=== PATIENT | female | born 1950 | race Caucasian/White ===

== ENCOUNTER 2024-02-29 12:55 | Outpatient (RCR) | payer MEDICARE, SELFPAY ==
--- NOTE | 2024-03-04 11:05 | MHC.SP.ADU ---
Referring provider: Jessica Carrasco MD Reason for Referral: Hoarseness Type of Treatment: 29867 Behavioral and Qualitative Analysis of Voice and Resonance Date of Plan of Treatment: 02/29/24 Onset of Symptoms/Illness: 06/30/23 Date Treatment Started: 02/29/24 Medical Diagnosis: Hoarseness, Polyp of Vocal Chord and Larynx. 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 Jessica at this evaluation produced pictures and an active recording of her larynx taken at her last visit to the ENT for follow up and repeat laryngoscopy. Her polyp was clearly visible on her left vocal fold, and on vowel production it constrained movement and vibration of the left vocal chord. Jessica notes that her hoarseness from the condition is mild, mostly noticed by her versus others. However, she formerly sang in a [employer] choir, and notes she is unable to sing, particularly in her typical range which is soprano. Apart from occasional singing, Jessica reports no specific activity or behavior that would indicate unusual or excessive vocal use. 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 Her twin foster daughters who are on the autism spectrum and have diagnosed mental health issues now live in a penitentiary. She described talking a lot when she was actively caring for her children, however not chronically yelling or speaking with loud volume. With regard to further vocal health indicators, Jessica has no substantive history of smoking, alcohol use, allergies or asthma. She reports that she has not been diagnosed with GERD, but notes she has occasional heart burn. She noted that she does not necessarily keep track of how much water or clear fluids she is drinking during the day and suspects at times she may be mildly dehydrated. 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 She noted that her vocal chord polyp and thyroid nodules are being treated by different specialists with different diagnoses and treatments', and therefore it is unclear if there is any correlation between the two. She noted that her thyroid levels are normal despite the presence of nodules. Jessica queried if voice therapy could cure her polyp, and she was given an honest response that it may improve her vocal quality and use, but it is indeterminant if it will cause her polyp to recede, particularly given her generally good vocal health (with vocal health issues not indicated as precursory). Jessica is , reporting that her is a retired irrigation engineer, and the family live in a private residence in [place]. Jessica continues to be fully involved with her daughter's care, receiving some assistance during the day as respite. 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 Medication List: Please refer to medical chart. Recent Hospitalizations: No Respiratory Needs: Room Air Patient Orientation: Alert & Oriented x 4 Social History: Employment Status: Self-Employed Highest level of education obtained: Completed High School/GED Current Living Situation: Lives in a private residence in [place] with and disabled adult daughter. Past Speech Language Therapy: Jessica reports she had speech services when she was in third grade. Other Therapies Seen in Current Calendar Year: None Reported Speech, Language, Cognition difficulties: Voice Comments: Mild dysphonia/hoarseness Quality of Life: Excellent Patient Stated Goal of Speech-Language Therapy: Provide a program of vocal therapy to improve vocal function. Assessment Informal Voice Assessment: Voice Loudness: Mildly Soft/Quiet Voice Nasal Resonance: Normal Voice Oral Resonance: Normal Voice Phonatory-based Quality: Hoarse Voice Pitch: Normal Voice Other Observations: Throat Clearing Clinical Impression: Impaired Clinicial Observations: Jessica presented as highly cooperative, insightful and very pleasant with strong communication skills. Jessica was administered the Consensus Auditory Perceptual Evaluation of Voice (CAPE-V). On this evaluation, Aletha demonstrated a balanced ratio of voiceless v. voiced phonation (S/Z Ration) of .95. When producing sustained continuous phonation of speech sounds, mild wavering, or unsteady tone was noted.. When producing normal speech of targeted speech sounds in phonemically balanced sentences, a mildly hoarse/breathy vocal quality with mildly reduced vocal volume was noted. When asked to vary volume, Jessica demonstrated normal ability. On pitch variation, Jessica demonstrated reduced range, with wavering/pitch breaks noted both on higher notes and lower notes. Enedina appeared to be able to produce adequate breath support for speech and was well familiar with abdominal/diaphragmatic breathing from her singing experience. Excessive vocal strain was not noted on this evaluation. Impressions and Recommendations Summary: On voice evaluation today, Jessica presents with mild perceptual vocal differences that include a mildly hoarse/breathy vocal quality, and mild wavering/phonation breaks when sustaining a sound or a musical note. 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 She notably has minimal reported vocal health issues as possible antecedents to her condition, with adequate hydration the only indicator. Given referral/recommendation by her ENT for vocal therapy and Jessica's expressed interest in treatment, it is recommended Jessica return for a period of intervention, to provide therapeutic techniques and education to improve her vocal quality. Impact on Daily Function/Activity Limitations: Daily Activities: Mild Interpersonal Interactions: Mild Education: Mild Employment: Mild Community: Mild Prognosis for Improvement: Good Recommendation for Speech Therapy: Outpatient Speech Therapy Frequency/Duration: One, forty five minute therapy session, weekly. Date Range for Service Requested: 6-8 Weeks Time to Reassess: PRN Longterm Goals: Jessica will sustain clear vocal tone, volume and appropriate breath support for voicing in conversational speech in 4 out of 5 contexts. Short Term Goals: Goal # : 1.1 Jessica will use relaxation strategies, including circular breathing, constructive rest, visualization techniques to reduce muscle tension demonstrating 80% independence on instructed techniques, Goal Status: Goal# : 2.1 Given instruction in vocal flow (easy breath support for phonation), Jessica will sustain phonation of specific vowel phonemes with sustained tone as measured by a sound or pitch meter for 3 seconds 2.2 Using vocal flow technique, Jessica will produce easy onset of words with 80% accuracy 2.3 Using vocal flow technique, Jessica will produce easy onset at the phrase level with 80% accuracy. Goal Status: Goal # : 3.1: Using directed resonance and vocal flow technique, Jessica will vary vocal pitch with sustained tone as measured by a pitch meter, evidencing at least three sustained notes. Goal Status: Goal # : 4.1: Jessica will sustain clear vocal tone, volume and appropriate breath support for voicing in conversational speech in 4 out of 5 contexts. Goal Status: Patient Education: Completed: Yes Patient/Caregiver Education: Described Results of Evaluation Patient expressed understanding of evaluation Patient agrees with goals and treatment plan Comments/Barriers to Learning: Exhibit Carpenter Clinican/Clinical Fellow: No Supervisory Statement: N/A Speech Language Pathologist: Sheyla Marcial M.A., [facility]-UNDERCOVER OPERATOR
== END 2024-03-09 13:46 | disposition still patient (30) ==
LOC: HO.SH 12:55
PROVIDERS: PCP Internal Medicine; Visit Provider Otolaryngology
DX: R49.0 Dysphonia (principal)
CPT/HCPCS: 92524

== ENCOUNTER 2024-04-24 13:00 | Outpatient (RCR) | payer MEDICARE, SELFPAY ==
--- NOTE | 2024-05-15 11:07 | MHC.SL.SOA ---
Referring Provider: Jessica Carrasco MD Reason for Referral: Hoarseness Date of Plan of Treatment:02/29/24 Onset of Symptoms/Illness:06/30/23 Date Treatment Started:02/29/24 Medical Diagnosis: Primary Speech Language Diagnosis:R49.0 Dysphonia Secondary Speech Language Diagnosis: Number of Authorized Visits Remaining: Authorization End Date: Reason for Visit:66778 Individual Treatment Other: Subjective:This is an administrative discharge note, as yesterday, Jessica contacted this clinic to inform that she was electively stopping therapy due to the costs in was incurring. To date, she has completed five therapy sessions, with an initial recommendation for 6-8 depending on progress. Jessica has made excellent progress in the five session, and had recently reported that her vocal node had receded, though not fully. At all sessions, Jessica fully participated and was receptive to learning strategies to improve her voice and vocal quality. Objective: Jessica practiced exercises focused on breath support, relaxed vocal production and general relaxation with direct cuing. Assessment/Progress on goals: 1.1: During therapy, Jessica was instructed in circular breathing and abdominal breathing exercises for voice production, demonstrated 100% accuracy on these strategies. She was further instructed in constructive rest strategies and cervical and shoulder exercises for identifying and releasing muscular tension. Finally she was instructed in a simple massage sequence for structures of the larynx and base of tongue. She again was cooperative, engaged and accurate on all of these relaxation strategies. 2.1 Jessica was able to sustain adequate breath support for phonation using vocal flow technique with 100% accuracy over several sessions. 2.2 Jessica used easy onset/vocal flow to initiate words with a variety of initial consonants demonstrated 80-100% accuracy. 2.3 Jessica used easy onset/vocal flow to initiate phrases and full sentence with a variety of initial consonant targets demonstrated 80-100% accuracy. 3.1: Through a variety of exercises, Jessica improved her use and awareness of resonance to support both volume and tone/pitch demonstrating 80-100% accuracy on all exercises. 4.1: During connected and conversational speech activities, Jessica was able to sustain and use strategies to support her voice and balance vocal tone and volume with good accuracy. During therapy, Jessica further completed self evaluations regarding taking adequate hydration during the day; which at the onset of therapy had been identified as her primary issue related to vocal health. Jessica did improve her awareness of this issue, and she improved intake of water/clear fluids during the day, however she often spoke of how busy she was with care for her daughter and other responsibilities that distracted her from her own self care. Summary: Jessica completed five sessions of voice therapy, making strong progress on strategies and awareness to improve her vocal quality and vocal health. Notes: Plan: Goal # : 1.1 Jessica will use relaxation strategies, including circular breathing, constructive rest, visualization techniques to reduce muscle tension demonstrating 80% independence on instructed techniques, Status of Goal: Goal Met Goal # : 2.1 Given instruction in vocal flow (easy breath support for phonation), Jessica will sustain phonation of specific vowel phonemes with sustained tone as measured by a sound or pitch meter for 3 seconds 2.2 Using vocal flow technique, Jessica will produce easy onset of words with 80% accuracy 2.3 Using vocal flow technique, Jessica will produce easy onset at the phrase level with 80% accuracy. Status of Goal: Goal Met Goal # : 3.1: Using directed resonance and vocal flow technique, Jessica will vary vocal pitch with sustained tone as measured by a pitch meter, evidencing at least three sustained notes. Status of Goal: Goal Met Goal # : 4.1: Jessica will sustain clear vocal tone, volume and appropriate breath support for voicing in conversational speech in 4 out of 5 contexts. Status of Goal: Goal Met Seen by: Graduate/Clinical Fellow: No Supervisory Statement: f_Reg Query Last Value , MHC.AU.SIGNATUR Speech Language Pathologist: Sheyla Marcial M.A., CCC-CONSULTANT NURSE
== END 2024-05-15 15:58 | disposition home or self-care (01) ==
LOC: HO.SH 13:00
PROVIDERS: PCP Internal Medicine; Visit Provider Otolaryngology
DX: R49.0 Dysphonia (principal)
CPT/HCPCS: 92507